=== PATIENT | female | born 1955 | race Caucasian/White ===

== ENCOUNTER 2023-04-22 07:10 | Inpatient (IN) | payer MEDICARE, OTHER ==
[~2023-04-22] VITALS: Ht 154.9 cm; Wt 70.8 kg
[2023-04-22] MEDS ORDERED: LIDOCAINE 2%-EPI 1:100,000 30 ML VIAL ONE (08:29)
[2023-04-22] MEDS ORDERED: VANCOMYCIN 1 GM VIAL ONE (08:30)
[2023-04-22] MEDS ORDERED: dexaMETHasone SOD PHOSPHATE 2 ML ONE (08:30)
[2023-04-22] MEDS ORDERED: FAMOTIDINE/PF INJ 20 MG/2 ML VIAL IV ONE (08:49)
[2023-04-22] MEDS ORDERED: ROCURONIUM BROMIDE 50 MG/5 ML ONE (08:49)
[2023-04-22] MEDS ORDERED: MIDAZOLAM HCL 2 MG/2ML VIAL ONE (08:49)
[2023-04-22] MEDS ORDERED: FENTANYL PF 100MCG/2ML AMPUL ONE (08:49)
[2023-04-22] MEDS ORDERED: HYDROMORPHONE 1 MG/1 ML DISP.SYRIN IV PRN (11:00)
[2023-04-22] MEDS ORDERED: ONDANSETRON HCL/PF 4 MG/2 ML VIAL IV PRN (11:00)
[2023-04-22] MEDS ORDERED: LOSA50TA39 PO (12:40)
[2023-04-22] MEDS ORDERED: CARV25TA PO (12:40)
[2023-04-22] MEDS: ACETAMINOPHEN 325 MG TABLET PO PRN (14:54)
[2023-04-22] MEDS: IV NS 0.9% 1,000 ML IV PRN (14:55)
[2023-04-22 15:51] VITALS: BP 142/76; TEMP 98; O2SAT 97
[2023-04-22] MEDS ORDERED: MAGNESIUM HYDROXIDE 30 ML UDC PO PRN (17:00)
[2023-04-22] MEDS ORDERED: ONDANSETRON HCL/PF 4 MG/2 ML VIAL IVP PRN (17:00)
[2023-04-22] MEDS ORDERED: ZOLPIDEM TARTRATE 5 MG TABLET PO PRN (17:00)
[2023-04-22] MEDS ORDERED: Z GUARD REMEDY 4 OZ OINT TP PRN (17:00)
[2023-04-22] MEDS ORDERED: MAG HYDROX/AL HYDROX/SIMETH 30 ML UDC PO PRN (17:00)
[2023-04-22] MEDS: CARVEDILOL 12.5 MG TABLET PO SCH (17:37)
[2023-04-22 20:00] VITALS: BP 145/81; TEMP 97.7; O2SAT 96
[2023-04-22] MEDS: VANCOMYCIN 1 GM in IV D5W 250ml IV SCH (21:44)
[2023-04-23] MEDS: ACETAMINOPHEN 325 MG TABLET PO PRN (01:42)
[2023-04-23 06:24] LABS: BASOPHILS % (AUTO) 0.1 % (0.0-2.0); HEMATOCRIT 34 % (33-45); HEMOGLOBIN 11.3 g/dL (11.5-14.8); LYMPHOCYTES # (AUTO) 1.1 K/uL (0.8-4.8); LYMPHOCYTES % (AUTO) 7.8 % (20.0-44.0); MEAN CORPUSCULAR HEMOGLOBIN 29 PG (26.0-33.0); MEAN CORPUSCULAR HGB CONC 33 g/dl (31.0-36.0); MEAN CORPUSCULAR VOLUME 86 fL (82-100); MONOCYTES % (AUTO) 7.4 % (2.0-12.0); NEUTROPHILS # (AUTO) 11.8 K/uL (1.8-8.9); NEUTROPHILS % (AUTO) 84.7 % (43.0-81.0); PLATELET COUNT (AUTO) 272 K/uL (150-450); RED BLOOD CELL COUNT(AUTO) 3.92 MIL/uL (4.0-5.2); RED CELL DISTRIBUTION WIDTH 13.5 % (11.5-15.0); WHITE BLOOD COUNT (AUTO) 13.9 K/uL (4.3-11.0)
[2023-04-23 06:42] LABS: CALCIUM, SERUM 9.3 mg/dL (8.5-10.1); CREATININE 0.7 mg/dL (0.6-1.3); MAGNESIUM 2.4 mg/dL (1.8-2.4); PHOSPHORUS 4.1 mg/dL (2.5-4.9); POTASSIUM 3.9 mmol/L (3.5-5.1)
[2023-04-23 07:30] VITALS: BP 105/66; TEMP 97.5; O2SAT 97
[2023-04-23 09:00] VITALS: BP 105/66
[2023-04-23] MEDS: LOSARTAN POTASSIUM 50 MG TABLET PO SCH (09:00)
== END 2023-04-23 15:31 | disposition home or self-care (01) | DRG 516 ==
LOC: DS 07:10 → MED 07:13
PROVIDERS: ADMIT Dentist Oral and Maxillofacial Surgery; ATTEND Dentist Oral and Maxillofacial Surgery
PROC: 0NSL04Z Reposition Left Palatine Bone with Internal Fixation Device, Open Approach (ICD-10-PCS; principal; 2023-04-22)
PROC: 09BR0ZZ Excision of Left Maxillary Sinus, Open Approach (ICD-10-PCS; principal; 2023-04-22)
PROC: 09UR07Z Supplement Left Maxillary Sinus with Autologous Tissue Substitute, Open Approach (ICD-10-PCS; principal; 2023-04-22)
PROC: 0NBR0ZX Excision of Maxilla, Open Approach, Diagnostic (ICD-10-PCS; principal; 2023-04-22)
PROC: 0NSR04Z Reposition Maxilla with Internal Fixation Device, Open Approach (ICD-10-PCS; principal; 2023-04-22)
DX: S02.82XA Fracture of other specified skull and facial bones, left side, initial encounter for closed fracture (principal); S02.19XA Other fracture of base of skull, initial encounter for closed fracture; T17.0XXA Foreign body in nasal sinus, initial encounter; M27.2 Inflammatory conditions of jaws; I10 Essential (primary) hypertension; E78.5 Hyperlipidemia, unspecified; J32.0 Chronic maxillary sinusitis; X58.XXXA Exposure to other specified factors, initial encounter; Y93.9 Activity, unspecified; Y92.89 Other specified places as the place of occurrence of the external cause
CPT/HCPCS: 36415; 80048-TC; 80061-TC; 83735-TC; 84100-TC; 85025-TC; A4223; C1713; G0378; J1100; J2250; J2405; J2704; J3010; J3370; J3490; J7030; J7040; J7060